=== PATIENT | female | born 1960 | race Caucasian/White ===

== ENCOUNTER 2018-10-12 07:06 | Day surgery (SDC) | payer OTHER ==
[~2018-10-12] VITALS: Ht 160 cm; Wt 55.8 kg
[~2018-10-12 07:06] MED LIST: ASPI-817 PO; GLIP5TAB25 PO; METF-849 PO; OMEP40CA6 PO; PRAV20TA63 PO
[2018-10-12 08:18] VITALS: Ht 160 cm; Wt 55.8 kg
[2018-10-12 08:20] VITALS: BP 144/72; PULSE 89; RESP 18
[2018-10-12] MEDS ORDERED: [UNRECOGNIZED DRUG - OTHER] (08:24)
[2018-10-12] MEDS ORDERED: ACYCLOVIR (08:24)
[2018-10-12] MEDS ORDERED: EZETIMIBE (08:24)
[2018-10-12] MEDS ORDERED: LIDOCAINE 4% SOLUTION 50 ML BTL ONE (08:45)
[2018-10-12 09:20] VITALS: BP 107/64; PULSE 76; RESP 15
[2018-10-12] MEDS ORDERED: MIDAZOLAM 1 MG/ML 2 ML INJ ONE ×2 (09:27)
[2018-10-12] MEDS ORDERED: FENTAnyl 50 MCG/ML VIAL ONE (09:27)
[2018-10-12 09:35] VITALS: BP 111/66; PULSE 79; RESP 15
== END 2018-10-12 12:59 | disposition home or self-care (01) ==
LOC: GIL 07:06
PROVIDERS: ATTEND Internal Medicine Gastroenterology
DX: Z12.11 Encounter for screening for malignant neoplasm of colon (principal); K29.50 Unspecified chronic gastritis without bleeding; D12.5 Benign neoplasm of sigmoid colon; K64.4 Residual hemorrhoidal skin tags; E11.9 Type 2 diabetes mellitus without complications
CPT/HCPCS: 43239; 45385; 82962; 88305; 88312; J2250; J3010; Z7610